=== PATIENT | female | born 1935 | race Caucasian/White ===

== ENCOUNTER 2023-10-30 13:26 | Inpatient (IN) | payer OTHER ==
--- OUTSIDE RECORDS SUMMARY | 2023-10-30 13:28 | XMS REPORT | Continuity of Care Document ---
Author Name Unknown Address [address] [place] [address] thconnect Address [address] [place] [address] Care Team Providers Care Business Technology Analyst Name Role Phone Unavailable Unavailable Unavailable Encounters Start Date/Time End Date/Time Encounter Type Admission Type Attending Clinicians Care Facility Care Department Encounter ID Source 2020-08-03 10:00:00 2020-08-03 10:00:00 Outpatient [facility] [id number] [facility]
[2023-10-30 14:07] LABS: Absolute Eosinophils 0.4 K/uL (0-0.5); Absolute Monocytes 0.6 K/uL (0.1-1.3); Absolute Neutrophil 5.4 K/uL (1.8-8.0); Basophils % 0.6 % (0-1.3); Eosinophils % 4.3 % (0-4.4); Hematocrit 36.7 % (36.0-45.0); Hemoglobin 12.3 g/dL (12.0-15.0); Lymphocytes % 23.7 % (15.3-44.8); MCH 30.9 pg (27.0-35.0); MCHC 33.5 g/dL (32.0-36.0); MCV 92.4 fL (80-100); MPV 8.3 fL (7.6-11.3); Monocytes % 7.3 % (3.3-12.3); Neutrophils % 64.1 % (41.7-73.7); Platelets 300 thou/uL (152-406); RBC Red Blood Cell Count 3.97 M/uL (3.86-4.86); Red Cell Distribution Width 13.6 % (12.1-15.2)
[2023-10-30 14:20] LABS: PT Prothrombin Time 11.8 SECONDS (9.5-12.5); Protime INR 1.07
[2023-10-30 14:27] LABS: Albumin 3.6 g/dL (3.4-5.0); Albumin/Globulin Ratio 1.1 (1.1-1.8); Anion Gap 9.5 mEq/L (5.0-15.0); Bilirubin Direct 0.3 mg/dL (0-0.2); Bilirubin Indirect, Calculated 0.3 mg/dL (0.2-0.8); Bilirubin Total 0.6 mg/dL (0.2-1.0); Globulin 3.4 g/dL (2.3-3.5); Magnesium 2.2 mg/dL (1.6-2.4); Potassium 4.5 mEq/L (3.5-5.1); Troponin High Sensitivity 5.7 pg/mL (<58.9)
--- NOTE | 2023-10-30 14:48 | RAD REPORT ---
[facility] CLINICAL HISTORY: CHEST PAIN COMPARISON: Chest Pa And Lat (2 Views) dated 06/19/2017; CHEST PA AND LAT 2 VIEW dated 03/08/2011; FORREST ST PA AND LAT 2 VIEW dated 04/22/2006 TECHNIQUE: Portable AP view of the chest. FINDINGS: Hazy left basilar opacities more pronounced than on the prior exam, could reflect atelecta sis or early airspace disease. Stable right hemidiaphragm elevation and medial apical streaky opacifi cation. No pneumothorax or effusion. The cardiomediastinal contours are unremarkable. IMPRESSION: Hazy left basilar opacities more pronounced than on the prior exam, could reflect atelec tasis or early airspace disease.
--- NOTE | 2023-10-30 15:17 | EDPHYS ---
Physician Documentation [facility] Name: Moira Alvares Age: 88 yrs Sex: Female : 1935 Arrival Date: 10/30/2023 Time: 13:26 Bed 14 Private MD: Ariel Marino V ED Physician Danya Stovall HPI: 10/29 13:33 This 88 yrs old Female presents to ER via Unassigned with complaints of Chest Pain. sp3 13:33 88-year-old female with history of hypertension, prior CVA presents to the ED with sp3 chief complaint chest pain that started approximate 1 PM and lasted 20 minutes and self subsided. Pain was described as crushing and substernal in nature. She denies any radiation to the back head and neck or abdomen. She denies shortness of breath, abdominal pain, vomiting, diarrhea, fever, URI symptoms, known sick contacts, travel history, prolonged immobilization, prior DVT or PE history, syncope, focal neurological deficit, speech changes, trauma, or any other signs or symptoms on ROS at this time. Historical: - Allergies: 13:42 Demerol; iw - PMHx: 13:42 Hypertensive disorder; Hypercholesterolemia; iw - PSHx: 13:42 hysterectomy; iw - Immunization history:: Adult Immunizations up to date, Client reports receiving the 2nd dose of the Covid vaccine. - Infectious Disease History:: Denies. - Social history:: Smoking status: Patient/guardian denies using tobacco, but has a distant history of tobacco abuse. ROS: 13:34 Constitutional: Negative for fever, chills, and weight loss, Eyes: Negative for injury, sp3 pain, redness, and discharge, ENT: Negative for injury, pain, and discharge, Neck: Negative for injury, pain, and swelling, Respiratory: Negative for shortness of breath, cough, wheezing, and pleuritic chest pain, Abdomen/GI: Negative for abdominal pain, nausea, vomiting, diarrhea, and constipation, Back: Negative for injury and pain, MS/Extremity: Negative for injury and deformity, Skin: Negative for injury, rash, and discoloration, Neuro: Negative for headache, weakness, numbness, tingling, and seizure, Psych: Negative for depression, anxiety, suicide ideation, homicidal ideation, and hallucinations, Allergy/Immunology: Negative for hives, rash, and allergies, Endocrine: Negative for neck swelling, polydipsia, polyuria, polyphagia, and marked weight changes, Hematologic/Lymphatic: Negative for swollen nodes, abnormal bleeding, and unusual bruising, 13:34 All other systems are negative, Exam: 13:34 Constitutional: This is a well developed, well nourished patient who is awake, alert, sp3 and in no acute distress. Head/Face: Normocephalic, atraumatic. Eyes: Pupils equal round and reactive to light, extra-ocular motions intact. Lids and lashes normal. Conjunctiva and sclera are non-icteric and not injected. Cornea within normal limits. Periorbital areas with no swelling, redness, or edema. ENT: Nares patent. No nasal discharge, no septal abnormalities noted. External auditory canals are clear. Oropharynx with no redness, swelling, or masses, exudates, or evidence of obstruction, uvula midline. Mucous membranes moist. Neck: Trachea midline, no thyromegaly or masses palpated, and no cervical lymphadenopathy. Supple, full range of motion without nuchal rigidity, or vertebral point tenderness. No Meningismus. Chest/axilla: Normal chest wall appearance and motion. Nontender with no deformity. No lesions are appreciated. Cardiovascular: Regular rate and rhythm with a normal S1 and S2. No gallops, murmurs, or rubs. Normal PMI, no JVD. No pulse deficits. Respiratory: Lungs have equal breath sounds bilaterally, clear to auscultation and percussion. No rales, rhonchi or wheezes noted. No increased work of breathing, no retractions or nasal flaring. Abdomen/GI: Soft, non-tender, with normal bowel sounds. No distension or tympany. No guarding or rebound. No evidence of tenderness throughout. Back: No spinal tenderness. No costovertebral tenderness. Full range of motion. Skin: Warm, dry with normal turgor. Normal color with no rashes, no lesions, and no evidence of cellulitis. MS/ Extremity: Pulses equal, no cyanosis. Neurovascular intact. Full, normal range of motion. Neuro: Awake and alert, GCS 15, oriented to person, place, time, and situation. Cranial nerves II-XII grossly intact. Motor strength 5/5 in all extremities. Sensory grossly intact. Cerebellar exam normal. Normal gait. Psych: Awake, alert, with orientation to person, place and time. Behavior, mood, and affect are within normal limits. 13:36 ECG was reviewed by the Attending Physician. EKG demonstrates normal sinus rhythm at 65 sp3 bpm with normal intervals, normal QRS, leftward axis and nonspecific diffuse ST's ST changes without evidence of acute ischemia. Vital Signs: 13:41 BP 139 / 70; Pulse 66; Resp 16; Temp 97.5; Pulse Ox 100% on R/A; Weight 51.71 kg; iw Height 4 ft. 11 in. ; 14:00 BP 155 / 62; Pulse 62; Resp 16; Pulse Ox 100% on R/A; me1 15:36 BP 135 / 68; Pulse 59; Resp 13; Pulse Ox 100% on R/A; me1 16:00 BP 150 / 69; Pulse 69; Resp 18; Pulse Ox 100% on R/A; me1 17:00 BP 164 / 89; Pulse 78; Resp 21; Pulse Ox 96% on R/A; me1 18:00 BP 129 / 62; Pulse 62; Resp 17; Pulse Ox 99% on R/A; me1 19:00 BP 146 / 74; Pulse 63; Resp 19; Pulse Ox 100% on R/A; me1 13:41 Body Mass Index 23.02 (51.71 kg, 149.86 cm) iw MDM: 13:29 Patient medically screened. sp3 13:35 Data reviewed: vital signs, nurses notes, old medical records, lab test result(s), EKG, sp3 radiologic studies. ED course: 80-year-old female with 20-minute history of self resolving chest pain and CVA and hypertension history. Differential diagnosis includes ACS spectrum, GI pathology, MSK, among others. I am not highly suspicious for pulmonary pathology, pneumonia or other concerning process including vascular/aortic aneurysm or dissection. Workup will include EKG, chest x-ray and laboratory values including troponin with probable 24-hour observation given high heart score.. 15:16 ED course: Discussed with Dr. Marino who agrees patient needs to be observed for 23 sp3 hours with cardiology consultation.. 10/29 13:29 Order name: Basic Metabolic Panel; Complete Time: 14:45 sp3 10/29 13:29 Order name: CBC with Diff; Complete Time: 14:45 sp3 10/29 13:29 Order name: LFT's; Complete Time: 14:45 sp3 10/29 13:29 Order name: Magnesium; Complete Time: 14:45 sp3 10/29 13:29 Order name: NT PRO-BNP; Complete Time: 14:45 sp3 10/29 13:29 Order name: PT-INR; Complete Time: 14:45 sp3 10/29 13:29 Order name: Troponin HS; Complete Time: 14:45 sp3 10/29 15:41 Order name: Basic Metabolic Panel EDMS 10/29 15:41 Order name: Basic Metabolic Panel EDMS 10/29 15:41 Order name: Basic Metabolic Panel EDMS 10/29 15:41 Order name: Basic Metabolic Panel EDMS 10/29 15:41 Order name: CBC with Automated Diff EDMS 10/29 15:41 Order name: CBC with Automated Diff EDMS 10/29 15:41 Order name: CBC with Automated Diff EDMS 10/29 15:41 Order name: CBC with Automated Diff EDMS 10/29 15:41 Order name: Troponin High Sensitivity EDMS 10/29 15:41 Order name: Troponin High Sensitivity EDMS 10/29 15:41 Order name: Troponin High Sensitivity EDMS 10/29 13:29 Order name: XRAY Chest (1 view); Complete Time: 14:54 sp3 10/29 18:53 Order name: CT EDMS 10/29 15:41 Order name: CONS Physician Consult EDMS 10/29 15:41 Order name: EKG Electrocardiogram EDMS 10/29 15:41 Order name: EKG Electrocardiogram EDMS 10/29 15:41 Order name: EKG Electrocardiogram EDMS 10/29 15:41 Order name: EKG Electrocardiogram EDMS 10/29 13:29 Order name: Cardiac monitoring; Complete Time: 14:30 sp3 10/29 13:29 Order name: EKG - Nurse/Tech; Complete Time: 13:48 sp3 10/29 13:29 Order name: IV Saline Lock; Complete Time: 13:55 sp3 10/29 13:29 Order name: Labs collected and sent; Complete Time: 13:55 sp3 10/29 13:29 Order name: O2 Per Protocol; Complete Time: 13:48 sp3 10/29 13:29 Order name: O2 Sat Monitoring; Complete Time: 13:48 sp3 Administered Medications: No medications were administered Disposition Summary: 10/30/23 15:16 Hospitalization Ordered Notes: Hospitalization Status: Observation sp3 Provider: Ariel Marino sp3 Condition: Stable sp3 Problem: new sp3 Symptoms: have worsened sp3 Bed/Room Type: Standard sp3 Location: Telemetry/MedSurg (observation)(10/30/23 18:41) em1 Room Assignment: 232(10/30/23 18:41) em1 Diagnosis - Chest pain sp3 Forms: - Medication Reconciliation Form sp3 - SBAR form sp3 - Leadership Thank You Letter sp3 Signatures: Dispatcher [employer] EDMS Rachna Medrano RN RN iw Martinez, Eric em1 Danya Stovall MD MD sp3 Corrections: (The following items were deleted from the chart) 13:29 13:29 BASIC METABOLIC PANEL+C.LAB.BRZ ordered. EDMS EDMS 13:29 13:29 CBC+H.LAB.BRZ ordered. EDMS EDMS 13:29 13:29 HEPATIC FUNCTION+C.LAB.BRZ ordered. EDMS EDMS 13:29 13:29 MAGNESIUM+C.LAB.BRZ ordered. EDMS EDMS 13:29 13:29 PROBNP+C.LAB.BRZ ordered. EDMS EDMS 13:29 13:29 PROTIME (+INR)+COAG.LAB.BRZ ordered. EDMS EDMS 13:29 13:29 Troponin High Sensitivity+C.LAB.BRZ ordered. EDMS EDMS 13:34 13:34 Constitutional: This is a well developed, well nourished patient who is awake, sp3 alert, and in no acute distress. Head/Face: Normocephalic, atraumatic. Eyes: Pupils equal round and reactive to light, extra-ocular motions intact. Lids and lashes normal. Conjunctiva and sclera are non-icteric and not injected. Cornea within normal limits. Periorbital areas with no swelling, redness, or edema. ENT: Nares patent. No nasal discharge, no septal abnormalities noted. External auditory canals are clear. Oropharynx with no redness, swelling, or masses, exudates, or evidence of obstruction, uvula midline. Mucous membranes moist. Neck: Trachea midline, no thyromegaly or masses palpated, and no cervical lymphadenopathy. Supple, full range of motion without nuchal rigidity, or vertebral point tenderness. No Meningismus. Chest/axilla: Normal chest wall appearance and motion. Nontender with no deformity. No lesions are appreciated. Respiratory: Lungs have equal breath sounds bilaterally, clear to auscultation and percussion. No rales, rhonchi or wheezes noted. No increased work of breathing, no retractions or nasal flaring. Abdomen/GI: Soft, non-tender, with normal bowel sounds. No distension or tympany. No guarding or rebound. No evidence of tenderness throughout. Back: No spinal tenderness. No costovertebral tenderness. Full range of motion. Skin: Warm, dry with normal turgor. Normal color with no rashes, no lesions, and no evidence of cellulitis. MS/ Extremity: Pulses equal, no cyanosis. Neurovascular intact. Full, normal range of motion. Neuro: Awake and alert, GCS 15, oriented to person, place, time, and situation. Cranial nerves II-XII grossly intact. Motor strength 5/5 in all extremities. Sensory grossly intact. Cerebellar exam normal. Normal gait. Psych: Awake, alert, with orientation to person, place and time. Behavior, mood, and affect are within normal limits. sp3 16:34 15:16 Telemetry/MedSurg (observation) sp3 em1 16:34 15:16 sp3 em1 18:41 16:34 [facility] ER HOLD em1 em1 18:41 16:34 ERHOLD- em1 em1
--- NOTE | 2023-10-30 15:17 | ER ---
Nurse's Notes [facility] Name: Moira Alvares Age: 88 yrs Sex: Female : 1935 Arrival Date: 10/30/2023 Time: 13:26 Bed 14 Private MD: Ariel Marino V Diagnosis: Chest pain Presentation: 10/29 13:41 Chief complaint: Patient states: chest pain started at 1300 , lasted about 15-20 iw minutes. Coronavirus screen: At this time, the client does not indicate any symptoms associated with coronavirus-19. Ebola Screen: Patient negative for fever greater than or equal to 101.5 degrees Fahrenheit, and additional compatible Ebola Virus Disease symptoms Patient denies exposure to infectious person. Patient denies travel to an Ebola-affected area in the 21 days before illness onset. No symptoms or risks identified at this time. Initial Sepsis Screen: Does the patient meet any 2 criteria? No. Patient's initial sepsis screen is negative. Does the patient have a suspected source of infection? No. Patient's initial sepsis screen is negative. Risk Assessment: Do you want to hurt yourself or someone else? Patient reports no desire to harm self or others. Onset of symptoms was October 30, 2023. 13:41 Method Of Arrival: Wheelchair iw 13:41 Acuity: VALERIA 3 iw Historical: - Allergies: 13:42 Demerol; iw - PMHx: 13:42 Hypertensive disorder; Hypercholesterolemia; iw - PSHx: 13:42 hysterectomy; iw - Immunization history:: Adult Immunizations up to date, Client reports receiving the 2nd dose of the Covid vaccine. - Infectious Disease History:: Denies. - Social history:: Smoking status: Patient/guardian denies using tobacco, but has a distant history of tobacco abuse. Screenin:30 [facility] ED Fall Risk Assessment (Adult) History of falling in the last 3 months, me1 including since admission No falls in past 3 months (0 pts) Confusion or Disorientation No (0 pts) Intoxicated or Sedated No (0 pts) Impaired Gait No (0 pts) Mobility Assist Device Used No (0 pt) Altered Elimination No (0 pt) Score/Fall Risk Level 0 - 2 = Low Risk Maintained a safe environment, Provided non-skid footwear, Hourly rounding (assess needs \T\ fall precautionary measures) done. Abuse screen: Denies threats or abuse. Nutritional screening: No deficits noted. Tuberculosis screening: No symptoms or risk factors identified. Assessment: 13:30 General: Appears comfortable, well groomed, well developed, well nourished, Behavior is me1 calm, cooperative, appropriate for age, Reports chest pain that started about 1 pm and lasted 15-20 minutes. Pain: Complains of pain in chest Pain radiates to right jaw and left jaw Pain at worst was 8 out of 10 on a pain scale. Quality of pain is described as heavy, Pain began suddenly, Is lasting 30 minutes. Neuro: Level of Consciousness is awake, alert, obeys commands, Oriented to person, place, time, situation, Appropriate for age. Cardiovascular: Reports chest pain, nausea, shortness of breath, started at 1 pm and lasted 15-20 minutes. Denies chest pain since. Capillary refill < 3 seconds Patient's skin is warm and dry. Respiratory: Airway is patent Respiratory effort is even, unlabored, Respiratory pattern is regular, symmetrical. GI: Reports nausea, associated with her one episode of chest pain. : No signs and/or symptoms were reported regarding the genitourinary system. EENT: No signs and/or symptoms were reported regarding the EENT system. Derm: Skin is intact, is healthy with good turgor, Skin is pink, warm \T\ dry. Musculoskeletal: No signs and/or symptoms reported regarding the musculoskeletal system. 14:03 Reassessment: Patient and/or family updated on plan of care and expected duration. Pain ll1 level reassessed. Vital Signs: 13:41 BP 139 / 70; Pulse 66; Resp 16; Temp 97.5; Pulse Ox 100% on R/A; Weight 51.71 kg; iw Height 4 ft. 11 in. ; 14:00 BP 155 / 62; Pulse 62; Resp 16; Pulse Ox 100% on R/A; me1 15:36 BP 135 / 68; Pulse 59; Resp 13; Pulse Ox 100% on R/A; me1 16:00 BP 150 / 69; Pulse 69; Resp 18; Pulse Ox 100% on R/A; me1 17:00 BP 164 / 89; Pulse 78; Resp 21; Pulse Ox 96% on R/A; me1 18:00 BP 129 / 62; Pulse 62; Resp 17; Pulse Ox 99% on R/A; me1 19:00 BP 146 / 74; Pulse 63; Resp 19; Pulse Ox 100% on R/A; me1 13:41 Body Mass Index 23.02 (51.71 kg, 149.86 cm) ED Course: 13:27 Patient arrived in ED. rg4 13:27 Ariel Marino MD is Private Physician. rg4 13:28 Danya Stovall MD is Attending Physician. sp3 13:30 Patient has correct armband on for positive identification. Bed in low position. Call me1 light in reach. Side rails up X2. Provided Education on: POC. Verbalized understanding. . 13:30 No provider procedures requiring assistance completed. O2 via room air. me1 13:42 Triage completed. iw 13:43 Arm band placed on. iw 13:43 Client placed on continuous cardiac and pulse oximetry monitoring. NIBP monitoring me1 applied. automatic oven operator on. Pulse ox on. NIBP on. 13:47 Delfina Gates, RN is Primary Nurse. me1 13:49 EKG done, by ED staff, reviewed by Danya Stovall MD. me1 13:58 Inserted saline lock: 22 gauge in right antecubital area, using aseptic technique. ll1 Blood collected. 14:22 XRAY Chest (1 view) In Process Unspecified. EDMS 15:16 Ariel Marino MD is Hospitalizing Provider. sp3 18:50 Patient admitted, IV remains in place. me1 Administered Medications: No medications were administered Medication: 13:30 VIS not applicable for this client. me1 Outcome: 15:16 Decision to Hospitalize by Provider. sp3 18:50 Admitted to Med/surg accompanied by tech, room 232, with chart, Report called to me1 report faxed at 18:47. Called 2nd floor to confirm receipt of fax- no answer. 18:51 Condition: stable me1 18:51 Instructed on the need for admit, 19:58 Patient left the ED. me1 Signatures: Dispatcher [employer] EDMS Rachna Medrano, RN RN iw Marifer Mendoza rg4 Bronson Goins RN RN 1 Danya Stovall MD MD sp3 Delfina Gates, YOSELYN RN me1
--- NOTE | 2023-10-30 18:52 | RAD REPORT ---
EXAM DESCRIPTION: CT - Abdomen Pelvis W Contrast - 10/30/2023 5:47 pm CLINICAL HISTORY: pain COMPARISON: No comparisons TECHNIQUE: Thin cut axial CT imaging of the abdomen and pelvis was performed following intravenous a dministration of iodinated contrast. Multiplanar reformats were generated and reviewed. All CT scans are performed using dose optimization technique as appropriate and may include automated exposure control or mA/KV adjustment according to patient size. FINDINGS: No suspicious findings in the lung bases. Mild left more than right basilar reticular opac ities suggestive of fibrosis/scarring. The liver demonstrates multiple fluid density lesions, the largest replaces most of the right lobe pa renchyma, measuring 15 x 12 cm. Adrenal glands, spleen, and pancreas show no suspicious findings. Gal lbladder and biliary tree are also without suspicious finding. Symmetric renal function is seen with no hydronephrosis or suspicious renal mass. Exophytic right upp er pole 3.0 cm fluid density cyst. No dilated bowel loops. No free air or fluid collections. Colonic diverticulosis, with focal inflamma tory changes with adjacent fat stranding and minimal adjacent non loculated fluid at the distal desce nding colon, along its anterior wall. No hernia, mass or bulky lymphadenopathy. The urinary bladder i s decompressed limiting evaluation. No suspicious bony findings. IMPRESSION: Findings suggestive of uncomplicated acute diverticulitis of the distal descending colon . Multi hepatic cystic lesions, including a dominant 15 cm lesion replacing most of the right lobe. Other incidental findings as above.
--- NOTE | 2023-10-30 20:46 | CON ---
Reason For Consultation: Chest pain. History Of Present Illness: This is an 88-year-old female, past medical history of hypertension, pre sented to the emergency room with chest pain, pressure like, retrosternal, radiates to the neck and j aw and lasts for about 45 minutes to an hour, resolved and has been happening over the past few month s and becoming more frequent lately. Denies having any history of cardiac disease. No active smokin g history. The only past medical history that she takes medications for is hypertension. Past Medical History: Hypertension. Medications: Refer to reconciliation sheet for detailed list. Allergies: NO KNOWN DRUG ALLERGIES. Family History: No premature coronary artery disease or cancer. Social History: She does not smoke or drink. Does not use any drugs. Review of Systems: All systems reviewed and they were negative except as mentioned in the HPI. Physical Examination: Vital Signs: Reviewed. Head and Neck: Pupils are equal, reactive to light. Intact eye movements. No JVD. No cervical lym phadenopathy. Neck is supple. Thyroid is not enlarged. Lungs: Clear to auscultation bilaterally. No rhonchi, wheezing, or crackles. No accessory muscle u se. Heart: Regular rate and rhythm. No extra sounds. Abdomen: Soft, nontender. Bowel sounds positive. No organomegaly. No masses or hernia. No rigidi ty or rebound. Extremities: No edema, clubbing, cyanosis. Intact pulses. Skin: No rash or nodule. Neurologic: Alert, awake, oriented x3. No acute focal deficits appreciated. Investigations: BUN 34, creatinine 1.3. Troponin is 5.7. NT-proBNP 564. Hemoglobin 12.3. Assessment/recommendation: 1.Chest pain, very typical features. Troponin is negative. However, this is suggestive of unstable angina. Recommend baby aspirin and trend troponin x2 and obtain echocardiogram and keep n.p.o. past midnight for coronary angiogram. Symptoms are extremely typical. I would bypass with stress test a nd go directly with coronary angiogram. 2.Elevated NT-proBNP, low-grade diastolic versus systolic heart failure. Obtain echo to further monet luate. 3.Hypertension. Resume home medications. Adjust blood pressure medications as needed. 4.Elevated BUN, creatinine, could be due to hypertension. Monitor while in the hospital. SR/MODL Voice ID: [id number] Report ID: [id number]
[2023-10-30 20:50] VITALS: BMI 23.5
--- NOTE | 2023-10-30 21:31 | P.HP ---
Certification for Inpatient Patient admitted to: Inpatient With expected LOS: >2 Midnights Practitioner: I am a practitioner with admitting privileges, knowledge of patient current condition, hospital course, and medical plan of care. Services: Services provided to patient in accordance with Admission requirements found in Title 42 Section 412.3 of the Code of Federal Regulations Patient History Date of Service: 10/30/23 Reason for admission: abdomen and chest pain History of Present Illness: Shawna is 88 years old relatively healthy woman with no cardiac history, comes with abdomen pain for two days,got gradually better but woke up with chest pain and radiation to neck. She is painfree now in the chest but abdomen pain continues. Allergies meperidine Allergy (Verified 10/30/23 16:29) Itching Home medications list reviewed: Yes - Past Medical/Surgical History Has patient received pneumonia vaccine in the past: Yes Diabetic: No -: hysterectomy - Social History Smoking Status: Never smoker Alcohol use: No CD- Drugs: No Caffeine use: No Place of Residence: Home Review of Systems 10-point ROS is otherwise unremarkable General: Weakness Gastrointestinal: Abdominal Pain Physical Examination - Vital Signs Temperature: 97.3 F Blood Pressure: 148/79 Pulse: 70 Respirations: 16 Pulse Ox (%): 97 - Physical Exam General: Alert, In no apparent distress HEENT: Atraumatic, PERRLA, Mucous membr. moist/pink, EOMI, Sclerae nonicteric Neck: Supple, 2+ carotid pulse no bruit, No LAD, Without JVD or thyroid abnormality Respiratory: Clear to auscultation bilaterally, Normal air movement Cardiovascular: Regular rate/rhythm, Normal S1 S2 Gastrointestinal: No rebound Musculoskeletal: No tenderness Integumentary: No rashes Neurological: Normal gait, Normal speech, Normal strength at 5/5 x4 extr, Normal tone, Normal affect Lymphatics: No axilla or inguinal lymphadenopathy - Studies Laboratory Data (last 24 hrs) 10/30/23 10/30/23 10/30/23 13:58 13:58 13:58 WBC 8.40 Hgb 12.3 Hct 36.7 Plt Count 300 PT 11.8 INR 1.07 Sodium 139 Potassium 4.5 BUN 34 H Creatinine 1.31 H Glucose 97 Magnesium 2.2 Total Bilirubin 0.6 AST 19 ALT 22 Alkaline Phosphatase 97 Assessment and Plan - Problems (Diagnosis) (1) Chest pain Current Visit: Yes Status: Acute Plan: lovenox aspirin cath in am. EKG is normal ce neg but chest pain is classic for cad. (2) Acute diverticulitis Current Visit: Yes Status: Acute Plan: IV cipro and flagyl gentle hydration. - Advance Directives Does patient have a Living Will: Yes Does patient have a Durable POA for Healthcare: Yes
[2023-10-30] MEDS: NACHLORIDE 0.45% 1,000 ML IV SCH (22:47)
[2023-10-30] MEDS: CIPROFLOXACIN 400mg IV 400 MG/200 ML BAG IV SCH (22:51)
[2023-10-31] MEDS ORDERED: metroNIDAZOLE 500 MG TABLET PO SCH
[2023-10-31] MEDS: METRONIDAZOLE 500mg IVPB 500 MG/100 ML BAG IV SCH (01:15)
[2023-10-31 03:41] LABS: Absolute Eosinophils 0.3 K/uL (0-0.5); Absolute Monocytes 0.4 K/uL (0.1-1.3); Absolute Neutrophil 4.8 K/uL (1.8-8.0); Basophils % 0.5 % (0-1.3); Eosinophils % 4.4 % (0-4.4); Hematocrit 32.6 % (36.0-45.0); Hemoglobin 11.2 g/dL (12.0-15.0); Lymphocytes % 15.3 % (15.3-44.8); MCH 31.6 pg (27.0-35.0); MCHC 34.3 g/dL (32.0-36.0); MPV 8.5 fL (7.6-11.3); Monocytes % 6.1 % (3.3-12.3); Neutrophils % 73.7 % (41.7-73.7); Platelets 270 thou/uL (152-406); RBC Red Blood Cell Count 3.54 M/uL (3.86-4.86); Red Cell Distribution Width 13.6 % (12.1-15.2)
[2023-10-31 04:03] LABS: Anion Gap 11.3 mEq/L (5.0-15.0); Potassium 3.3 mEq/L (3.5-5.1); Troponin High Sensitivity 11.1 pg/mL (<58.9)
[2023-10-31] MEDS: ENOXAPARIN 30 MG/0.3 ML SQ SCH (07:00)
[2023-10-31] MEDS: POTASSIUM 25 MEQ EFFERV TAB PO ONE (08:58)
[2023-10-31] MEDS: ASPIRIN EC 81 MG TAB PO SCH (09:00)
[2023-10-31] MEDS: NA CHLORIDE 0.9% 500 ML ONE (12:24)
[2023-10-31] MEDS ORDERED: LIDOCAINE 1% 20 ML MDV ONE (13:07)
[2023-10-31] MEDS ORDERED: HEPA 1000U/500MLS 2,000 UNIT/1,000 ML BAG IV ONE (13:07)
[2023-10-31] MEDS ORDERED: HEPARIN 10,000 UNIT/10 ML VIAL IV ONE (13:08)
[2023-10-31] MEDS ORDERED: HEPARIN 5000 UNIT/ML 1 ML VIAL ONE (13:08)
[2023-10-31] MEDS ORDERED: FENTANYL CITR 100 MCG/2 ML ONE (14:16)
[2023-10-31] MEDS ORDERED: MIDAZOLAM HCL 2 MG/2 ML INJ ONE (14:16)
--- NOTE | 2023-10-31 16:09 | OP ---
Date of Procedure: 10/31/2023 Surgeon: Dangelo Barajas Procedure Performed: Selective coronary angiogram. Indication: Unstable angina. Complication: None. Bleeding: Less than 50 cc. Sedation Time: 20 minutes. Description Of Procedure: After risks, and benefits, and alternatives were explained to patient, pat ient agreed to proceed with procedure and signed an informed consent. The patient was brought back t o the dental laboratory supervisor, prepped and draped in a sterile fashion. Time-out was performed. Sedation was admin istered. The right radial access was obtained using ultrasound-guided micropuncture technique. A 6- Yi sheath was introduced. [place] 4.0 catheter was advanced over a J-wire to the aortic root. Alicia ective coronary angiogram was performed. Catheter was removed and TR band was applied after sheath r emoval. The patient was moved back to recovery in stable condition. Findings: 1.Left main is normal. 2.LAD; mild luminal irregularities. 3.Left circ; mild luminal irregularities. 4.RCA; tortuous, mid 30% disease, then mild LI. Assessment And Plan: Mild nonobstructive coronary artery disease. Plan will be to continue medical management. CAMILO/ROSAS Voice ID: [id number] Report ID: [id number]
--- NOTE | 2023-10-31 18:17 | P.PN ---
Subjective Date of Service: 10/31/23 Chief Complaint: abdomen and chest pain Subjective: No new changes Review of Systems 10-point ROS is otherwise unremarkable Physical Examination - Vital Signs Temperature: 97.1 F Blood Pressure: 147/65 Pulse: 78 Respirations: 16 Pulse Ox (%): 98 - Physical Exam General: Alert, Oriented x3 HEENT: Atraumatic Neck: Supple Respiratory: Clear to auscultation bilaterally Cardiovascular: No edema, Normal S1 S2 Gastrointestinal: Normal bowel sounds Assessment And Plan - Current Problems (Diagnosis) (1) Chronic diastolic heart failure Current Visit: Yes Status: Acute Plan: Patient LVEDP is normal and euvolemic on exam, continue to monitor. (2) HTN (hypertension) Current Visit: Yes Status: Acute Plan: Continue home medications. (3) Chest pain Current Visit: Yes Status: Acute Plan: Patient had a coronary angiogram that shows mild non obstructive CAD. Continue medical management.
[2023-10-31] MEDS: ENSURE HIGH PROTEIN 237 ML CAN PO SCH (21:30)
[2023-11-01 03:10] LABS: Absolute Eosinophils 0.5 K/uL (0-0.5); Absolute Lymphocytes (CBC) 1.2 K/uL (0.7-4.9); Absolute Monocytes 0.7 K/uL (0.1-1.3); Absolute Neutrophil 5.6 K/uL (1.8-8.0); Basophils % 0.5 % (0-1.3); Eosinophils % 5.8 % (0-4.4); Hematocrit 33.2 % (36.0-45.0); Hemoglobin 11.4 g/dL (12.0-15.0); MCH 31.7 pg (27.0-35.0); MCHC 34.5 g/dL (32.0-36.0); MPV 8.4 fL (7.6-11.3); Monocytes % 8.9 % (3.3-12.3); Neutrophils % 69.8 % (41.7-73.7); Platelets 261 thou/uL (152-406); RBC Red Blood Cell Count 3.61 M/uL (3.86-4.86); Red Cell Distribution Width 13.5 % (12.1-15.2)
[2023-11-01 03:11] LABS: Anion Gap 8.5 mEq/L (5.0-15.0); Potassium 3.5 mEq/L (3.5-5.1)
[2023-11-01] MEDS: METOPROLOL TAR 25 MG TAB PO SCH (05:33)
[2023-11-01] MEDS: METOPROLOL TARTRATE 5 MG/5 ML INJ IV STA (05:33)
[2023-11-01] MEDS ORDERED: CEFOXITIN 2 GM in NA CHLORIDE 0.9% 100 ML IVPB SCH (09:00)
[2023-11-01] MEDS ORDERED: ENOXAPARIN 40 MG/0.4 ML SQ SCH (09:00)
[2023-11-01] MEDS: CEFOXITIN 2 GM in NA CHLORIDE 0.9% 100 ML IVPB SCH (09:04)
[2023-11-01] MEDS: APIXABAN 5 MG TABLET PO SCH (09:04)
--- NOTE | 2023-11-01 13:08 | P.PN ---
Subjective Date of Service: 11/01/23 Chief Complaint: abdomen and chest pain Subjective: New changes (Patient went into AF w RVR overnight. now in sinus rhythm.) Review of Systems 10-point ROS is otherwise unremarkable Physical Examination - Vital Signs Temperature: 97.9 F Blood Pressure: 114/80 Pulse: 116 Respirations: 24 Pulse Ox (%): 96 - Physical Exam General: Alert, Oriented x3 HEENT: Atraumatic Neck: Supple Respiratory: Clear to auscultation bilaterally Cardiovascular: No edema, Normal S1 S2 Gastrointestinal: Normal bowel sounds Assessment And Plan - Current Problems (Diagnosis) (1) Chronic diastolic heart failure Current Visit: Yes Status: Acute Plan: Patient LVEDP is normal and euvolemic on exam, continue to monitor. (2) HTN (hypertension) Current Visit: Yes Status: Acute Plan: Continue home medications. (3) Chest pain Current Visit: Yes Status: Acute Plan: Patient had a coronary angiogram that shows mild non obstructive CAD. Continue medical management. (4) Atrial fibrillation Current Visit: Yes Status: Acute Plan: overnight was in RVR, S/P lopressor 5 mg IV X1 Continue Sotalol 80 mg po BID, get repeated EKG after each dose. Continue Lopressor 25 mg po BID Continue Eliquis.
--- NOTE | 2023-11-01 14:47 | P.PN ---
Subjective Date of Service: 11/01/23 Chief Complaint: abdomen and chest pain Subjective: Improving SHE HAD RAPID A FIB LAST NIGHT. THAT IS FIRST TIME FOR HERE HERE. HER ABDOMEN PAIN IS IMPROVING. Review of Systems 10-point ROS is otherwise unremarkable General: Weakness Physical Examination - Vital Signs Temperature: 97.9 F Blood Pressure: 114/80 Pulse: 116 Respirations: 24 Pulse Ox (%): 96 - Physical Exam General: Mild distress HEENT: Atraumatic, PERRLA, EOMI Neck: Supple, JVD not distended Respiratory: Clear to auscultation bilaterally, Normal air movement Cardiovascular: Irregular heart rate/rhythm (NEW A FIB) Gastrointestinal: Normal bowel sounds, No tenderness Musculoskeletal: No tenderness Integumentary: No rashes Neurological: Normal speech, Normal tone, Normal affect Lymphatics: No axilla or inguinal lymphadenopathy - Studies Medications List Reviewed: Yes Assessment And Plan - Current Problems (Diagnosis) (1) Chest pain Current Visit: Yes Status: Acute Plan: lovenox aspirin cath in am. EKG is normal ce neg but chest pain is classic for cad. (2) Acute diverticulitis Current Visit: Yes Status: Acute Plan: IV cipro and flagyl gentle hydration. (3) Rapid atrial fibrillation Current Visit: Yes Status: Acute Plan: THIS IS NEW SOTALOL AND ELIQUIS SHOULD HELP D DIMER WAS HIGH BUT AGAIN SHE IS NOW ON ELIQUIS. SHE IS NOT IN ANY ACUTE DISTRESS WILL AVOID ANY MORE IODINE TO DO CT CHEST ANGIOGRAM SHE IS HEMODYNAICALLY ST ABLE THIS WILL COVER THE THERAPY IF SHE HAS PE.
[2023-11-01] MEDS: SOTALOL HCL 80 MG TAB PO SCH (17:03)
[2023-11-01] MEDS: CEFEPIME 1 GM in NA CHLORIDE 0.9% 100 ML IV SCH (17:04)
[2023-11-02 03:14] LABS: Absolute Basophils 0.1 K/uL (0-0.5); Absolute Eosinophils 0.5 K/uL (0-0.5); Absolute Lymphocytes (CBC) 2.2 K/uL (0.7-4.9); Absolute Monocytes 0.7 K/uL (0.1-1.3); Absolute Neutrophil 4.2 K/uL (1.8-8.0); Basophils % 0.9 % (0-1.3); Eosinophils % 7.1 % (0-4.4); Hematocrit 34.5 % (36.0-45.0); Hemoglobin 11.4 g/dL (12.0-15.0); Lymphocytes % 28.2 % (15.3-44.8); MCH 30.4 pg (27.0-35.0); MPV 8.1 fL (7.6-11.3); Monocytes % 8.6 % (3.3-12.3); Neutrophils % 55.2 % (41.7-73.7); Platelets 283 thou/uL (152-406); RBC Red Blood Cell Count 3.74 M/uL (3.86-4.86); Red Cell Distribution Width 13.5 % (12.1-15.2)
[2023-11-02 03:33] LABS: Anion Gap 7.5 mEq/L (5.0-15.0); Potassium 3.5 mEq/L (3.5-5.1)
[2023-11-02] MEDS: SOTALOL HCL 80 MG TAB PO SCH (06:00)
[2023-11-02 06:16] VITALS: O2SAT 97
[2023-11-02] MEDS: POTASSIUM CL SA 10 MEQ TAB PO ONE (09:44)
--- NOTE | 2023-11-02 10:23 | P.DS ---
Admission Date: 10/30/23 Discharge Date: 11/02/23 Disposition: ROUTINE DISCHARGE Discharge Condition: FAIR Reason for Admission: abdomen and chest pain - Problems (1) Chest pain Current Visit: Yes Status: Acute (2) Acute diverticulitis Current Visit: Yes Status: Acute (3) Rapid atrial fibrillation Current Visit: Yes Status: Acute Brief History of Present Illness: Shawna is 88 years old relatively healthy woman with no cardiac history, comes with abdomen pain for two days,got gradually better but woke up with chest pain and radiation to neck. She is painfree now in the chest but abdomen pain continues. Hospital Course: SHAWNA IS 80 YEARS OLD AND WAS ADMITTED FOR CHEST PAIN RADIATING TO NECK. IN FACT BEFORE 3 DAYS SHE HAD SEVERE ADBOMEN PAIN IN LLQ ALSO. I FELT SHE WAS SEVERELY TENDER THERE. HER CE ARE NEG, EKG NEGATIVE AND CATH IS NEGATIVE. SHE HAS DIVERTICULITIS IN LLQ AND RESPONDED WELL TO ANTIBIOTICS. SHE LATER HAD RAPID A FIB. WE NEEDED SOTALOL, I HAD TO STOP CIPRO AND CHANGE TO MEFOXIN. ON MEFOXIN SHE HAD FOCAL ALLERGY SO I HAD TO CHANGE TO CEFEPIME. SHE AT [place] IS ON SOTALOL SMALL DOSE SHE HAD BRADYCARDIA WITH 80 MG BID. SHE CONVERTED FROM A FIB TO NSR AND THEN BRADYCARDIA. IN MY OFFICE RECORDS- SHE IS LISTED ALLERGIC TO PCN. I CALLED CHARGE NURSE TRISTA TO CALL HER NOT TO FILL AMOX CLAV. STOP AMLODIPINE AND METOPROLOL SHE HAS AT HOME. RESEUME SOTALOL AND ELIQUIS. Vital Signs/Physical Exam: Temp Pulse Resp BP Pulse Ox 97.4 F 59 15 151/73 H 97 11/02/23 04:00 11/02/23 04:00 11/02/23 04:00 11/02/23 04:00 11/02/23 04:00 Laboratory Data at Discharge: WBC 7.60 thou/uL (4.3-10.9) 11/02/23 02:49 Hgb 11.4 g/dL (12.0-15.0) L 11/02/23 02:49 Hct 34.5 % (36.0-45.0) L 11/02/23 02:49 Plt Count 283 thou/uL (152-406) 11/02/23 02:49 PT 11.8 SECONDS (9.5-12.5) 10/30/23 13:58 INR 1.07 10/30/23 13:58 Sodium 136 mEq/L (136-145) 11/02/23 02:49 Potassium 3.5 mEq/L (3.5-5.1) 11/02/23 02:49 BUN 13 mg/dL (7-18) 11/02/23 02:49 Creatinine 0.82 mg/dL (0.55-1.02) 11/02/23 02:49 Glucose 102 mg/dL (74-106) 11/02/23 02:49 Magnesium 2.2 mg/dL (1.6-2.4) 10/30/23 13:58 Total Bilirubin 0.6 mg/dL (0.2-1.0) 10/30/23 13:58 AST 19 U/L (15-37) 10/30/23 13:58 ALT 22 U/L (13-56) 10/30/23 13:58 Alkaline Phosphatase 97 U/L (45-117) 10/30/23 13:58 Home Medications: Amoxicillin/Potassium Clav [Amox-Clav 500-125 mg Tablet] 1 each PO BID #14 11/02/23 Apixaban [Eliquis] 5 mg PO BID #60 11/02/23 Sotalol HCl [Betapace AF] 40 mg PO DAILY #30 11/02/23 New Medications: Amoxicillin/Potassium Clav [Amox-Clav 500-125 mg Tablet] 1 each PO BID #14 Sotalol HCl [Betapace AF] 40 mg PO DAILY #30 Apixaban [Eliquis] 5 mg PO BID #60 Followup: Ariel Marino MD [Primary Care Provider] -
[2023-11-02 10:58] VITALS: BP 178/71; TEMP 97.2
--- NOTE | 2023-11-03 13:05 | EKG ---
Test Date: 2023-10-31 Test Time: 11:43:25 Canteen Manager: RAMY MEASUREMENT RESULTS: Intervals: Rate: 73 [place]: 138 QRSD: 80 QT: 410 QTc: 451 [place]: P: -5 [place]: 138 QRS: -27 T: 12 INTERPRETIVE STATEMENTS: Normal sinus rhythm Nonspecific T wave abnormality Abnormal ECG Compared to ECG 10/30/2023 13:33:14 T-wave abnormality now present Left-axis deviation no longer present Electronically Signed On 11-03-23 12:57:42 CDT by Guilherme Chacon
--- NOTE | 2023-11-03 13:10 | EKG ---
Test Date: 2023-10-30 Test Time: 13:33:14 Cement Mason Maintenance: FORTUNATO MEASUREMENT RESULTS: Intervals: Rate: 65 [place]: 138 QRSD: 80 QT: 418 QTc: 434 [place]: P: -3 [place]: 138 QRS: -30 T: 21 INTERPRETIVE STATEMENTS: Normal sinus rhythm Left axis deviation Abnormal ECG Compared to ECG 05/20/2005 14:05:00 Left-axis deviation now present Electronically Signed On 11-03-23 12:59:28 CDT by Guilherme Chacon
--- NOTE | 2023-11-05 13:14 | EKG ---
Test Date: 2023-11-01 Test Time: 04:36:45 Drier Helper: KATTY MEASUREMENT RESULTS: Intervals: Rate: 139 PA: 172 QRSD: 74 QT: 282 QTc: 429 [place]: P: 27 PA: 172 QRS: -35 T: 148 INTERPRETIVE STATEMENTS: Sinus tachycardia Left axis deviation ST & T wave abnormality, consider lateral ischemia Abnormal ECG Compared to ECG 10/31/2023 11:43:25 Left-axis deviation now present ST (T wave) deviation now present Possible ischemia now present Sinus rhythm no longer present T-wave abnormality no longer present Electronically Signed On 11-05-23 13:07:59 CDT by Guilherme Chacon
== END 2023-11-02 10:15 | disposition home or self-care (01) | DRG 286 ==
LOC: ER 13:26 → ERHOLD 17:00 → 2ND 18:49
PROVIDERS: ADMIT Internal Medicine; ATTEND Internal Medicine
PROC: B2111ZZ Fluoroscopy of Multiple Coronary Arteries using Low Osmolar Contrast (ICD-10-PCS; principal; 2023-10-31)
DX: I11.0 Hypertensive heart disease with heart failure (principal); I50.31 Acute diastolic (congestive) heart failure; K57.92 Diverticulitis of intestine, part unspecified, without perforation or abscess without bleeding; I48.91 Unspecified atrial fibrillation; E78.00 Pure hypercholesterolemia, unspecified; I25.110 Atherosclerotic heart disease of native coronary artery with unstable angina pectoris; Z88.0 Allergy status to penicillin; Z88.5 Allergy status to narcotic agent; Z86.73 Personal history of transient ischemic attack (TIA), and cerebral infarction without residual deficits; Z90.710 Acquired absence of both cervix and uterus; Z87.891 Personal history of nicotine dependence
CPT/HCPCS: 36415; 71045; 74177; 76937; 80048; 80076; 83735; 83880; 84484; 85025; 85379; 85610; 93005; 93454; 99152; 99153; 99285; C1893; J0692; J0694; J0744; J1644; J2001; J2250; J3010; J7040; Q9966; Q9967

== ENCOUNTER 2023-11-12 01:19 | Inpatient (IN) | payer OTHER ==
--- OUTSIDE RECORDS SUMMARY | 2023-11-12 01:22 | XMS REPORT | Continuity of Care Document ---
Author Name Unknown Address [address] [place] [address] [employer] Address [address] [place] [address] Care Team Providers Care Ror Engineer Name Role Phone Unavailable Unavailable Unavailable Encounters Start Date/Time End Date/Time Encounter Type Admission Type Attending Clinicians Care Facility Care Department Encounter ID Source 2020-08-03 10:00:00 2020-08-03 10:00:00 Outpatient [facility] [id number] [facility]
[2023-11-12] MEDS ORDERED: dilTIAZem HCL 25 MG/5 ML VIAL IV ONE (01:54)
[2023-11-12] MEDS ORDERED: NA CHLORIDE 0.9% 100 ML ONE (01:54)
[2023-11-12 02:09] LABS: PT Prothrombin Time 15.8 SECONDS (9.5-12.5); Protime INR 1.45
[2023-11-12 02:11] LABS: Absolute Basophils 0.1 K/uL (0-0.5); Absolute Eosinophils 0.6 K/uL (0-0.5); Absolute Lymphocytes (CBC) 2.3 K/uL (0.7-4.9); Absolute Monocytes 0.7 K/uL (0.1-1.3); Eosinophils % 7.3 % (0-4.4); Hematocrit 37.9 % (36.0-45.0); Hemoglobin 12.8 g/dL (12.0-15.0); Lymphocytes % 26.6 % (15.3-44.8); MCHC 33.7 g/dL (32.0-36.0); MPV 8.7 fL (7.6-11.3); Monocytes % 8.4 % (3.3-12.3); Neutrophils % 56.7 % (41.7-73.7); Nucleated Red Blood Cells % 0.1 % (0-0); Platelets 333 thou/uL (152-406); RBC Red Blood Cell Count 4.12 M/uL (3.86-4.86); Red Cell Distribution Width 14.3 % (12.1-15.2)
[2023-11-12 02:32] LABS: ALT/SGPT 30 U/L (13-56); AST/SGOT 23 U/L (15-37); Albumin 3.9 g/dL (3.4-5.0); Albumin/Globulin Ratio 1.3 (1.1-1.8); Alkaline Phosphatase 87 U/L (45-117); Anion Gap 10.5 mEq/L (5.0-15.0); BUN Blood Urea Nitrogen 20 mg/dL (7-18); Bicarbonate 27 mEq/L (21-32); Bilirubin Total 0.4 mg/dL (0.2-1.0); Globulin 3.1 g/dL (2.3-3.5); Glomerular Filtration Rate 46 ml/min (=/>90); Glucose Level 126 mg/dL (74-106); Magnesium 2.1 mg/dL (1.6-2.4); NT PRO-BNP 518 pg/mL (<450); Potassium 3.5 mEq/L (3.5-5.1); Sodium Level 139 mEq/L (136-145); Troponin High Sensitivity 10.4 pg/mL (<58.9)
[2023-11-12 02:36] LABS: Bilirubin Direct < 0.2 mg/dL (0-0.2); Bilirubin Indirect, Calculated 0.2 mg/dL (0.2-0.8)
--- NOTE | 2023-11-12 04:29 | ER ---
Nurse's Notes [facility] Name: Moira Alvares Age: 88 yrs Sex: Female : 1935 Arrival Date: 11/12/2023 Time: 01:19 Bed 5 Private MD: Diagnosis: Persistent atrial fibrillation;Atrial fibrillation with rapid ventricular response Presentation: 11/11 01:26 Chief complaint: Patient states: I was recently here and told I have A-fib. I was at [facility] home tonight and my heart rate shot up to 110 and my blood pressure was in the 170's. Coronavirus screen: At this time, the client does not indicate any symptoms associated with coronavirus-19. Ebola Screen: No symptoms or risks identified at this time. Initial Sepsis Screen: Does the patient meet any 2 criteria? No. Patient's initial sepsis screen is negative. Does the patient have a suspected source of infection? No. Patient's initial sepsis screen is negative. Risk Assessment: Do you want to hurt yourself or someone else? Patient reports no desire to harm self or others. Onset of symptoms was November 12, 2023. Transition of care: patient was not received from another setting of care. 01:26 Method Of Arrival: Wheelchair [facility] 01:26 Acuity: VALERIA 2 jb4 Historical: - Allergies: 01:35 Demerol; jb4 02:09 PENICILLINS; jb4 - PMHx: 01:35 Hypercholesterolemia; Hypertensive disorder; a-fib (hysterectomy); jb4 - PSHx: 01:35 hysterectomy; jb4 - Immunization history:: Adult Immunizations up to date. - Infectious Disease History:: Denies. - Social history:: Smoking status: Patient denies any tobacco usage or history of. - Family history:: not pertinent. Screenin:00 [facility] ED Fall Risk Assessment (Adult) History of falling in the last 3 months, ha1 including since admission No falls in past 3 months (0 pts) Confusion or Disorientation No (0 pts) Intoxicated or Sedated No (0 pts) Impaired Gait No (0 pts) Mobility Assist Device Used Yes (1 pt) Altered Elimination No (0 pt) Score/Fall Risk Level 3 or more points = High Risk Oriented to surroundings, Maintained a safe environment, Educated pt \T\ family on fall prevention, incl call for assistance when getting out of bed, Hourly rounding (assess needs \T\ fall precautionary measures) done. 02:04 Abuse screen: Denies threats or abuse. Denies injuries from another. Nutritional ha1 screening: No deficits noted. Tuberculosis screening: No symptoms or risk factors identified. Assessment: 01:22 General: Appears comfortable, Behavior is calm, cooperative, appropriate for age. Pain: ha1 Denies pain. Neuro: Level of Consciousness is awake, alert, obeys commands, Oriented to person, place, time, situation, Appropriate for age. Cardiovascular: Reports irregular heart rate Denies chest pain, Heart tones present Capillary refill < 3 seconds Patient's skin is warm and dry. Rhythm is atrial fibrillation. Respiratory: Airway is patent Respiratory effort is even, unlabored, Respiratory pattern is regular, symmetrical. GI: No signs and/or symptoms were reported involving the gastrointestinal system. Abdomen is round non-distended. Derm: Skin is pink, warm \T\ dry. Musculoskeletal: Circulation, motion, and sensation intact. Range of motion: intact in all extremities. 02:20 Reassessment: Patient and/or family updated on plan of care and expected duration. Pain ha1 level reassessed. Patient is alert, oriented x 3, equal unlabored respirations, skin warm/dry/pink. 03:12 Reassessment: Patient and/or family updated on plan of care and expected duration. Pain ha1 level reassessed. Patient is alert, oriented x 3, equal unlabored respirations, skin warm/dry/pink. 04:00 Reassessment: Patient and/or family updated on plan of care and expected duration. Pain ha1 level reassessed. Patient is alert, oriented x 3, equal unlabored respirations, skin warm/dry/pink. Patient denies pain at this time. 05:00 Reassessment: Patient and/or family updated on plan of care and expected duration. Pain ha1 level reassessed. Patient is alert, oriented x 3, equal unlabored respirations, skin warm/dry/pink. Patient denies pain at this time. Vital Signs: 01:25 BP 161 / 102; Pulse 145; Resp 17 S; Temp 97.9; Pulse Ox 99% on R/A; ha1 01:26 Weight 52.16 kg (R); Height 4 ft. 11 in. ; jb4 02:00 BP 119 / 96; Pulse 105; Resp 16 S; Pulse Ox 98% on R/A; ha1 02:15 BP 120 / 89; Pulse 115; Resp 18 S; Pulse Ox 100% on R/A; ha1 02:30 BP 123 / 103; Pulse 112; Resp 16 S; Pulse Ox 98% on R/A; ha1 02:45 BP 119 / 89; Pulse 109; Resp 17 S; Pulse Ox 99% on R/A; ha1 03:00 BP 135 / 83; Pulse 102; Resp 15 S; Pulse Ox 98% on R/A; ha1 03:15 BP 123 / 82; Pulse 109; Resp 20 S; Pulse Ox 96% on R/A; ha1 03:30 BP 128 / 80; Pulse 113; Resp 15 S; Pulse Ox 97% on R/A; ha1 03:45 BP 126 / 82; Pulse 99; Resp 17 S; Pulse Ox 97% on R/A; ha1 04:00 BP 123 / 82; Pulse 109; Resp 17 S; Pulse Ox 97% on R/A; ha1 04:15 BP 133 / 72; Pulse 120; Resp 18 S; Pulse Ox 98% on R/A; ha1 04:30 BP 135 / 85; Pulse 102; Resp 18 S; Pulse Ox 98% on R/A; ha1 04:45 BP 129 / 100; Pulse 96; Resp 18 S; Pulse Ox 98% on R/A; ha1 05:00 BP 131 / 75; Pulse 101; Resp 17 S; Pulse Ox 97% on R/A; ha1 05:15 BP 127 / 78; Pulse 107; Resp 16 S; Pulse Ox 98% on R/A; ha1 05:30 BP 133 / 87; Pulse 109; Resp 16 S; Pulse Ox 98% on R/A; ha1 05:45 BP 134 / 90; Pulse 98; Resp 17 S; Pulse Ox 97% on R/A; ha1 06:00 BP 131 / 88; Pulse 105; Resp 17 S; Pulse Ox 97% on R/A; ha1 01:26 Body Mass Index 23.23 (52.16 kg, 149.86 cm) 4 ED Course: 01:22 Patient arrived in ED. 4 01:22 Patient has correct armband on for positive identification. Placed in gown. Bed in low ha1 position. Call light in reach. Side rails up X 1. Adult w/ patient. 01:22 Client placed on continuous cardiac and pulse oximetry monitoring. NIBP monitoring ha1 applied. flight kitchen manager on. :22 Door closed. Noise minimized. Warm blanket given. Pillow given. ha1 01:29 EKG done, by ED staff, reviewed by Suhail Jaeger MD. ha1 01:34 Triage completed. jb4 01:35 Arm band placed on right wrist. EKG completed in triage. Results shown to MD. jb4 01:36 Suhail Jaeger MD is Attending Physician. sp4 01:42 Inserted saline lock: 22 gauge in right antecubital area, using aseptic technique. ha1 Blood collected. 01:48 Basic Metabolic Panel Sent. ha1 03:01 XRAY Chest (1 view) In Process Unspecified. EDMS 04:28 Ariel Marino MD is Hospitalizing Provider. sp4 05:00 Provided Education on: need for admit . ha1 06:30 No provider procedures requiring assistance completed. Patient admitted, IV remains in ha1 place. Administered Medications: 01:55 Drug: Diltiazem IVP 10 mg IVP once; Over 2 minutes Route: IVP; Site: right antecubital; ha1 02:15 Follow up: Response: No adverse reaction ha1 02:10 Drug: Diltiazem IV 5 mg/hr IV at calculated rate See Administration Instructions; ha1 (standard dilution 125 mg diltiazem mixed in 125 mL NS; final concentration 1mg/mL). Recommended max rate 15 mg/hr; Titrate 5 mg/hr as often as every 15 minutes to achieve goal (see titration policy); Goal parameter HR less than 100 bpm Route: IV; Rate: calculated rate; Site: right antecubital; 06:00 Follow up: Response: No adverse reaction; IV Status: Infusion continued; IV Intake: [id number] Medication: 03:18 VIS not applicable for this client. ha1 Intake: 06:00 IV: 30ml; Total: 30ml. ha1 Outcome: 04:29 Decision to Hospitalize by Provider. sp4 06:14 Admitted to ICU accompanied by nurse, accompanied by tech, via stretcher, room 5, on ha1 monitor, with chart, 06:14 Condition: stable ha1 06:14 Instructed on the need for admit, Demonstrated understanding of instructions, 06:15 Patient left the ED. vc1 Signatures: Dispatcher [employer] EDJuan Miguel Chopra RN RN jb4 Marci Hassan RN RN vc1 Sabina Garrido RN RN ha1 Suhail Jaeger MD MD sp4 Corrections: (The following items were deleted from the chart) 06:33 06:32 Response: No adverse reaction; IV Status: Infusion continued; IV Intake: 30ml ha1 ha1
--- NOTE | 2023-11-12 04:29 | EDPHYS ---
Physician Documentation [facility] Name: Moira Alvares Age: 88 yrs Sex: Female : 1935 Arrival Date: 11/12/2023 Time: 01:19 Bed 5 Private MD: ED Physician Suhail Jaeger HPI: 11/11 01:39 This 88 yrs old Female presents to ER via Wheelchair with complaints of sp4 tachycardia . 04:12 88-year-old female presents with acute onset of racing heart and elevated blood sp4 pressure.. Patient has history of atrial fibrillation. During her recent admission 10/30/2023 patient was started on sotalol and Eliquis for atrial fibrillation with RVR. . Historical: - Allergies: 01:35 Demerol; jb4 02:09 PENICILLINS; jb4 - PMHx: 01:35 Hypercholesterolemia; Hypertensive disorder; a-fib (hysterectomy); jb4 - PSHx: 01:35 hysterectomy; jb4 - Immunization history:: Adult Immunizations up to date. - Infectious Disease History:: Denies. - Social history:: Smoking status: Patient denies any tobacco usage or history of. - Family history:: not pertinent. ROS: 04:12 Constitutional: Negative for fever, chills, and weight loss, positive tachycardia sp4 positive elevated blood pressure 04:12 All other systems are negative, Exam: 04:12 Constitutional: This is a well developed, well nourished patient who is awake, alert, sp4 and in no acute distress. Head/Face: Normocephalic, atraumatic. Eyes: Pupils equal round and reactive to light, extra-ocular motions intact. Lids and lashes normal. Conjunctiva and sclera are not injected. Cornea within normal limits. Periorbital areas with no swelling, redness, or edema. ENT: Nares patent. No nasal discharge, no septal abnormalities noted. Tympanic membranes are normal and external auditory canals are clear. Oropharynx with no redness, swelling, or masses, exudates, or evidence of obstruction, uvula midline. Mucous membranes moist. Neck: Trachea midline, no thyromegaly or masses palpated, and no cervical lymphadenopathy. Supple, full range of motion without nuchal rigidity, or vertebral point tenderness. Chest/axilla: Normal chest wall appearance and motion. Nontender with no deformity. No lesions are appreciated. Cardiovascular: Irregularly irregular heart rate with apparent atrial fibrillation on the monitor. No gallops, murmurs, or rubs. Normal PMI, no JVD. No pulse deficits. Respiratory: Lungs have equal breath sounds bilaterally, clear to auscultation and percussion. No rales, rhonchi or wheezes noted. No increased work of breathing, no retractions or nasal flaring. Abdomen/GI: Soft, with normal bowel sounds. No distension or tympany. No guarding or rebound. No evidence of tenderness throughout. Back: No spinal tenderness. No costovertebral tenderness. Skin: Warm, dry with normal turgor. Normal color with no rashes, no lesions, and no evidence of cellulitis. MS/ Extremity: Pulses equal, no cyanosis. Neurovascular intact. Full, normal range of motion. Neuro: Awake and alert, GCS 15, oriented to person, place, time, and situation. Cranial nerves II-XII grossly intact. Motor strength 5/5 in all extremities. Sensory grossly intact. Psych: Awake, alert, with orientation to person, place and time. Behavior, mood, and affect are within normal limits 04:12 ECG was reviewed by the Attending Physician. EKG time 0 128. Atrial fibrillation at the rate of 142, left axis deviation Vital Signs: 01:25 BP 161 / 102; Pulse 145; Resp 17 S; Temp 97.9; Pulse Ox 99% on R/A; ha1 01:26 Weight 52.16 kg (R); Height 4 ft. 11 in. ; jb4 02:00 BP 119 / 96; Pulse 105; Resp 16 S; Pulse Ox 98% on R/A; ha1 02:15 BP 120 / 89; Pulse 115; Resp 18 S; Pulse Ox 100% on R/A; ha1 02:30 BP 123 / 103; Pulse 112; Resp 16 S; Pulse Ox 98% on R/A; ha1 02:45 BP 119 / 89; Pulse 109; Resp 17 S; Pulse Ox 99% on R/A; ha1 03:00 BP 135 / 83; Pulse 102; Resp 15 S; Pulse Ox 98% on R/A; ha1 03:15 BP 123 / 82; Pulse 109; Resp 20 S; Pulse Ox 96% on R/A; ha1 03:30 BP 128 / 80; Pulse 113; Resp 15 S; Pulse Ox 97% on R/A; ha1 03:45 BP 126 / 82; Pulse 99; Resp 17 S; Pulse Ox 97% on R/A; ha1 04:00 BP 123 / 82; Pulse 109; Resp 17 S; Pulse Ox 97% on R/A; ha1 04:15 BP 133 / 72; Pulse 120; Resp 18 S; Pulse Ox 98% on R/A; ha1 04:30 BP 135 / 85; Pulse 102; Resp 18 S; Pulse Ox 98% on R/A; ha1 04:45 BP 129 / 100; Pulse 96; Resp 18 S; Pulse Ox 98% on R/A; ha1 05:00 BP 131 / 75; Pulse 101; Resp 17 S; Pulse Ox 97% on R/A; ha1 05:15 BP 127 / 78; Pulse 107; Resp 16 S; Pulse Ox 98% on R/A; ha1 05:30 BP 133 / 87; Pulse 109; Resp 16 S; Pulse Ox 98% on R/A; ha1 05:45 BP 134 / 90; Pulse 98; Resp 17 S; Pulse Ox 97% on R/A; ha1 06:00 BP 131 / 88; Pulse 105; Resp 17 S; Pulse Ox 97% on R/A; ha1 01:26 Body Mass Index 23.23 (52.16 kg, 149.86 cm) jb4 MDM: 01:40 Patient medically screened. sp4 04:18 Differential Diagnosis altered mental status, sepsis, flu, Atrial fibrillation with sp4 RVR. Data reviewed: vital signs, nurses notes, lab test result(s), EKG, radiologic studies, plain films. ED course: EXAM DESCRIPTION: Chest Single View CLINICAL HISTORY: CHEST PAIN COMPARISON: None TECHNIQUE: Single AP view of the chest. FINDINGS: Lung volumes diminished. Bronchovascular crowding. Cardiac silhouette is normal in size. No pneumothorax. No large pleural effusion. No focal consolidation. No acute bony finding. Degenerative changes of bilateral shoulders and visualized spine. IMPRESSION: 1. No acute cardiopulmonary findings. 2. Low lung volumes with associated hypoventilatory changes. . 11/11 01:40 Order name: Basic Metabolic Panel; Complete Time: 03:52 sp4 11/11 01:40 Order name: CBC with Diff; Complete Time: 03:52 sp4 05/08 01:40 Order name: LFT's; Complete Time: 03:52 sp11/11 01:40 Order name: Magnesium; Complete Time: 03:52 11/11 01:40 Order name: NT PRO-BNP; Complete Time: 03:52 11/11 01:40 Order name: PT-INR; Complete Time: 03:52 11/11 01:40 Order name: Troponin HS; Complete Time: 03:52 11/11 01:40 Order name: TSH; Complete Time: 03:52 11/11 01:40 Order name: T4 Free; Complete Time: 03:52 11/11 01:40 Order name: XRAY Chest (1 view) 11/11 04:08 Order name: CONS Physician Consult [facility] 11/11 01:40 Order name: Cardiac monitoring; Complete Time: 01:48 11/11 01:40 Order name: EKG - Nurse/Tech; Complete Time: :48 11/11 01:40 Order name: IV Saline Lock; Complete Time: :48 11/11 01:40 Order name: Labs collected and sent; Complete Time: :48 11/11 01:40 Order name: O2 Per Protocol; Complete Time: :48 11/11 01:40 Order name: O2 Sat Monitoring; Complete Time: :48 sp4 EC:12 Rate is 142 beats/min. Rhythm is irregularly irregular, A fib. Left axis deviation sp4 noted. QRS interval is normal. QT interval is normal. T waves are Normal. No ST changes noted. Clinical impression: No evidence of ischemia. Interpreted by me. Reviewed by me. Administered Medications: 01:55 Drug: Diltiazem IVP 10 mg IVP once; Over 2 minutes Route: IVP; Site: right antecubital; ha1 02:15 Follow up: Response: No adverse reaction ha1 02:10 Drug: Diltiazem IV 5 mg/hr IV at calculated rate See Administration Instructions; ha1 (standard dilution 125 mg diltiazem mixed in 125 mL NS; final concentration 1mg/mL). Recommended max rate 15 mg/hr; Titrate 5 mg/hr as often as every 15 minutes to achieve goal (see titration policy); Goal parameter HR less than 100 bpm Route: IV; Rate: calculated rate; Site: right antecubital; 06:00 Follow up: Response: No adverse reaction; IV Status: Infusion continued; IV Intake: [id number] Disposition Summary: 11/12/23 04:29 Hospitalization Ordered Notes: Hospitalization Status: Inpatient Admission sp4 Provider: Ariel Marino sp4 Condition: Stable sp4 Problem: new sp4 Symptoms: have improved sp4 Bed/Room Type: Standard sp4 Location: Intensive Care Unit(11/12/23 05:42) vk Room Assignment: 5-(11/12/23 05:42) vk Diagnosis - Persistent atrial fibrillation sp4 - Atrial fibrillation with rapid ventricular response sp4 Forms: - Medication Reconciliation Form sp4 - SBAR form sp4 - Leadership Thank You Letter sp4 Critical care time excluding procedures: 04:27 Critical care time: Bedside Care: 46 minutes, Consultation: 12 minutes, Family sp4 Intervention: 12 minutes. Total time: 70 minutes Signatures: Dispatcher [employer] EDJuan Miguel Chopra RN RN jb4 Sabina Garrido RN RN ha1 Suhail Jaeger MD MD sp4 Angela Santiago Corrections: (The following items were deleted from the chart) 01:41 01:41 BASIC METABOLIC PANEL+C.LAB.BRZ ordered. EDMS EDMS 01:41 01:41 CBC+H.LAB.BRZ ordered. EDMS EDMS 01:41 01:41 HEPATIC FUNCTION+C.LAB.BRZ ordered. EDMS EDMS 01:41 01:41 MAGNESIUM+C.LAB.BRZ ordered. EDMS EDMS 01:41 01:41 PROBNP+C.LAB.BRZ ordered. EDMS EDMS 01:41 01:41 PROTIME (+INR)+COAG.LAB.BRZ ordered. EDMS EDMS 01:41 01:41 Troponin High Sensitivity+C.LAB.BRZ ordered. EDMS EDMS 01:41 01:41 Chest Single View+RAD.RAD.BRZ ordered. EDMS EDMS 01:41 01:41 THYROID STIMULAT HORMONE+C.LAB.BRZ ordered. EDMS EDMS 01:41 01:41 T4 FREE+C.LAB.BRZ ordered. EDWI EDMS 05:42 04:29 Telemetry/MedSurg (Inpatient) sp4 vk 05:42 04:29 sp4 vk
[2023-11-12] MEDS ORDERED: ALBUTEROL 2.5 MG/3 ML NEB SOL NEB PRN (05:29)
[2023-11-12] MEDS ORDERED: ONDANSETRON 4 MG/2 ML VIAL IV PRN (05:29)
[2023-11-12] MEDS ORDERED: MORPHINE 4 MG/ML SYR IV PRN (05:29)
[2023-11-12] MEDS ORDERED: ACETAMINOPHEN 325 MG TABLET PO PRN (05:29)
[2023-11-12] MEDS ORDERED: ZOLPIDEM TARTRATE 5 MG TABLET PO PRN (05:29)
[2023-11-12 06:06] VITALS: BMI 23.2
[2023-11-12] MEDS: DILTIAZEM INJ 125 MG/25 ML 125 MG in NA CHLORIDE 0.9% 100 ML IV SCH (06:30)
[2023-11-12] MEDS: D5.45NS W/KCL 20MEQ 1,000 ML IV SCH ×2 (07:10→17:37)
[2023-11-12] MEDS: PNEUMOCOCCAL VACCINE 0.5 ML IMVAC ONE (08:00)
[2023-11-12] MEDS: APIXABAN 5 MG TABLET PO SCH ×2 (08:33→21:16)
[2023-11-12 09:26] LABS: Specific Gravity 1.009 (1.005-1.030); Urine Bilirubin NEGATIVE (Negative); Urine Blood Negative (Negative); Urine Clarity Clear (Clear); Urine Color Colorless (Yellow); Urine Glucose NEGATIVE (Negative); Urine Ketones NEGATIVE (Negative); Urine Microscopic Reflex YN NO UMIC; Urine Nitrite NEGATIVE (Negative); Urine Protein NEGATIVE (Negative); Urine Urobilinogen Normal (Normal); Urine pH 7.5 (5.0-7.0)
[2023-11-12] MEDS: SOTALOL HCL 80 MG TAB PO SCH (11:05)
--- NOTE | 2023-11-12 11:29 | P.CNS ---
Date of Consult: 11/12/23 Chief Complaint: AF w RVR History of Present Illness: Patient with PMH of atrial fibrillation, hypertension, HLD presented with new onset palpitations yesterday, denies any chest pain, no SOB, no syncope. Allergies meperidine Allergy (Verified 10/30/23 16:29) Itching Home Medications: RX: Apixaban [Eliquis] 5 mg PO BID #60 11/02/23 RX: Sotalol HCl [Betapace AF] 40 mg PO DAILY #30 11/02/23 RX: Losartan Potassium 100 mg PO DAILY 11/12/23 RX: Metronidazole 250 mg PO Q8H 11/12/23 RX: Simvastatin 20 mg PO BEDTIME 11/12/23 - Past Medical/Surgical History Diabetic: No -: hysterectomy - Social History Smoking Status: Former smoker Alcohol use: No CD- Drugs: No Caffeine use: No Place of Residence: Home Review of Systems 10-point ROS is otherwise unremarkable Physical Examination Temp Pulse Resp BP Pulse Ox 97.2 F 81 17 144/78 H 100 11/12/23 08:00 11/12/23 10:00 11/12/23 10:00 11/12/23 10:00 11/12/23 10:00 General: Alert, Oriented x3 HEENT: Atraumatic Neck: Supple Respiratory: Clear to auscultation bilaterally Cardiovascular: No edema, Irregular heart rate/rhythm Gastrointestinal: Normal bowel sounds Laboratory Data (last 24 hrs) 11/12/23 11/12/23 11/12/23 02:00 02:00 02:00 WBC 8.80 Hgb 12.8 Hct 37.9 Plt Count 333 PT 15.8 H INR 1.45 Sodium 139 Potassium 3.5 BUN 20 H Creatinine 1.15 H Glucose 126 H Magnesium 2.1 Total Bilirubin 0.4 AST 23 ALT 30 Alkaline Phosphatase 87 - Problems (1) HLD (hyperlipidemia) Current Visit: Yes Status: Acute Plan: continue crestor 10 mg daily (2) Atrial fibrillation Current Visit: No Status: Acute Plan: Patient is on cardizem drip, rate better controlled, patient was discharged on small dose of sotalol last time. start Sotalol 80 mg po BID, EKG after 3rd dose. Continue Eliquis 5 mg po BID Wean off Cardizem drip slowly for HR less than 100. (3) HTN (hypertension) Current Visit: No Status: Acute Plan: Continue Losartan 100 mg daily
--- NOTE | 2023-11-12 13:02 | RAD REPORT ---
EXAM DESCRIPTION: RAD - Chest Single View - 11/12/2023 2:59 am CLINICAL HISTORY: CHEST PAIN COMPARISON: None TECHNIQUE: Single AP view of the chest. FINDINGS: Lung volumes diminished. Bronchovascular crowding. Cardiac silhouette is normal in size. No pneumothorax. No large pleural effusion. No focal consolidation. No acute bony finding. Degenerative changes of bilateral shoulders and visualized spine. IMPRESSION: 1. No acute cardiopulmonary findings. 2. Low lung volumes with associated hypoventilatory changes. Electronically signed by: Nolan Nobles MD 11/12/2023 03:39 AM CDT Due to temporary technical issues with the PACS/Fluency reporting system, reports are being signed by the in house radiologist without review as a courtesy to ensure prompt reporting. The interpreting r adiologist is fully responsible for the content of the report.
--- NOTE | 2023-11-12 17:48 | P.HP ---
Certification for Inpatient Patient admitted to: Inpatient With expected LOS: >2 Midnights Practitioner: I am a practitioner with admitting privileges, knowledge of patient current condition, hospital course, and medical plan of care. Services: Services provided to patient in accordance with Admission requirements found in Title 42 Section 412.3 of the Code of Federal Regulations Patient History Date of Service: 11/12/23 Reason for admission: AF w RVR History of Present Illness: Moira had rapid palpitations at home. She is on Sotalol small dose as with regular dose she developed severe bradycardia. She has no other ss. Allergies meperidine Allergy (Verified 10/30/23 16:29) Itching Home Medications: Apixaban [Eliquis] 5 mg PO BID #60 11/02/23 Sotalol HCl [Betapace AF] 40 mg PO DAILY #30 11/02/23 Losartan Potassium 100 mg PO DAILY 11/12/23 Metronidazole 250 mg PO Q8H 11/12/23 Simvastatin 20 mg PO BEDTIME 11/12/23 - Past Medical/Surgical History Has patient received pneumonia vaccine in the past: Yes Diabetic: No -: hysterectomy - Social History Smoking Status: Never smoker Alcohol use: No CD- Drugs: No Caffeine use: No Place of Residence: Home Review of Systems 10-point ROS is otherwise unremarkable General: Weakness Physical Examination - Vital Signs Temperature: 98.2 F Blood Pressure: 119/68 Pulse: 60 Respirations: 16 Pulse Ox (%): 98 - Physical Exam General: Alert, In no apparent distress HEENT: Atraumatic, PERRLA, Mucous membr. moist/pink, EOMI, Sclerae nonicteric Neck: Supple, 2+ carotid pulse no bruit, No LAD, Without JVD or thyroid abnormality Respiratory: Clear to auscultation bilaterally, Normal air movement Cardiovascular: Regular rate/rhythm (bradycardia after dilt in er.) Gastrointestinal: Normal bowel sounds, No tenderness Musculoskeletal: No tenderness Integumentary: No rashes Neurological: Normal gait, Normal speech, Normal strength at 5/5 x4 extr, Normal tone, Normal affect Lymphatics: No axilla or inguinal lymphadenopathy - Studies Laboratory Data (last 24 hrs) 11/12/23 11/12/23 11/12/23 02:00 02:00 02:00 WBC 8.80 Hgb 12.8 Hct 37.9 Plt Count 333 PT 15.8 H INR 1.45 Sodium 139 Potassium 3.5 BUN 20 H Creatinine 1.15 H Glucose 126 H Magnesium 2.1 Total Bilirubin 0.4 AST 23 ALT 30 Alkaline Phosphatase 87 Assessment and Plan - Problems (Diagnosis) (1) Atrial fibrillation Current Visit: No Status: Acute Plan: Sotalol 80 mg bid if not trent to tolerate 40 mg bid eliquis bid Dr. Barajas on case. - Advance Directives Does patient have a Living Will: No Does patient have a Durable POA for Healthcare: No
[2023-11-12] MEDS: metroNIDAZOLE 500 MG TABLET PO SCH (18:11)
[2023-11-12] MEDS ORDERED: HOME MED 1 EA UNK (Simvastatin [Simvastatin] 20 MG Tablet) PO SCH (21:00)
[2023-11-12] MEDS: ATORVASTATIN 10 MG TAB PO SCH (21:15)
[2023-11-13 05:15] LABS: Absolute Basophils 0.1 K/uL (0-0.5); Absolute Eosinophils 0.5 K/uL (0-0.5); Absolute Lymphocytes (CBC) 2.1 K/uL (0.7-4.9); Absolute Monocytes 0.7 K/uL (0.1-1.3); Absolute Neutrophil 4.7 K/uL (1.8-8.0); Basophils % 0.6 % (0-1.3); Eosinophils % 6.2 % (0-4.4); Hematocrit 37.9 % (36.0-45.0); Hemoglobin 12.6 g/dL (12.0-15.0); Lymphocytes % 26.3 % (15.3-44.8); MCH 30.6 pg (27.0-35.0); MCHC 33.2 g/dL (32.0-36.0); MCV 92.3 fL (80-100); MPV 8.6 fL (7.6-11.3); Monocytes % 8.2 % (3.3-12.3); Neutrophils % 58.7 % (41.7-73.7); Nucleated Red Blood Cells % 0.1 % (0-0); Platelets 280 thou/uL (152-406); RBC Red Blood Cell Count 4.11 M/uL (3.86-4.86); Red Cell Distribution Width 14.5 % (12.1-15.2)
[2023-11-13 05:23] LABS: Anion Gap 7.5 mEq/L (5.0-15.0); Magnesium 1.9 mg/dL (1.6-2.4); Potassium 3.5 mEq/L (3.5-5.1)
[2023-11-13] MEDS: SOTALOL HCL 80 MG TAB PO SCH (06:33)
--- NOTE | 2023-11-13 07:47 | RAD REPORT ---
EXAM DESCRIPTION: US - Abdomen Exam Limited - 11/13/2023 5:40 am CLINICAL HISTORY: Abdominal pain. COMPARISON: None. FINDINGS: The gallbladder wall is not thickened. A gallstone is not seen. The biliary tree is normal caliber. 14 centimeter hepatic cyst without significant change from July [address]23 CT IMPRESSION: Unremarkable gallbladder ultrasound. 14 centimeter hepatic cyst without significant change from July [address]23 CT
[2023-11-13] MEDS: LOSARTAN POTASSIUM 50 MG TABLET PO SCH (08:14)
[2023-11-13 08:16] VITALS: TEMP 97
[2023-11-13 08:39] VITALS: BP 122/67
[2023-11-13] MEDS ORDERED: HOME MED 1 EA UNK (Losartan Potassium [Losartan Potassium] 100 MG Tablet) PO SCH (09:00)
[2023-11-13 09:30] VITALS: O2SAT 100
--- NOTE | 2023-11-13 10:06 | P.PN ---
Subjective Date of Service: 11/13/23 Chief Complaint: AF w RVR Subjective: New changes (patient converted to sinus rhythm) Review of Systems 10-point ROS is otherwise unremarkable Physical Examination - Vital Signs Temperature: 97.0 F Blood Pressure: 122/67 Pulse: 50 Respirations: 19 Pulse Ox (%): 100 - Physical Exam General: Alert, Oriented x3 HEENT: Atraumatic Neck: Supple Respiratory: Clear to auscultation bilaterally Cardiovascular: No edema, Normal S1 S2 Gastrointestinal: Normal bowel sounds Assessment And Plan - Current Problems (Diagnosis) (1) HLD (hyperlipidemia) Current Visit: Yes Status: Acute Plan: continue crestor 10 mg daily (2) Atrial fibrillation Current Visit: No Status: Acute Plan: Patient converted into sinus rhythm, sinus bradycardia now, patient was discharged on small dose of sotalol last time. Sotalol 40 mg po BID, EKG after 3rd dose (QTc is less than 500). Continue Eliquis 5 mg po BID (3) HTN (hypertension) Current Visit: No Status: Acute Plan: Continue Losartan 100 mg daily
--- NOTE | 2023-11-13 14:05 | EKG ---
Test Date: 2023-11-12 Test Time: 01:28:22 Log Roper: SERVANDO MEASUREMENT RESULTS: Intervals: Rate: 142 SC: QRSD: 78 QT: 320 QTc: 492 [place]: P: SC: QRS: -30 T: 115 INTERPRETIVE STATEMENTS: Atrial fibrillation Left axis deviation Abnormal ECG Compared to ECG 11/01/2023 04:36:45 Sinus tachycardia no longer present ST (T wave) deviation no longer present Possible ischemia no longer present Electronically Signed On 11-13-23 14:00:39 CDT by Guilherme Chacon
--- NOTE | 2023-11-17 13:33 | EKG ---
Test Date: 2023-11-13 Test Time: 06:08:09 Bed Setter: GIL MEASUREMENT RESULTS: Intervals: Rate: 49 VT: 146 QRSD: 84 QT: 516 QTc: 466 Barry: P: -12 VT: 146 QRS: -23 T: -8 INTERPRETIVE STATEMENTS: Marked sinus bradycardia T wave abnormality, consider anterior ischemia Abnormal ECG Compared to ECG 11/12/2023 01:28:22 T-wave abnormality now present Possible ischemia now present Atrial fibrillation no longer present Left-axis deviation no longer present Electronically Signed On 11-17-23 13:20:54 CDT by Guilherme Chacon
== END 2023-11-13 11:24 | disposition home or self-care (01) | DRG 310 ==
LOC: ER 01:19 → ERHOLD 04:04 → 3RD-ICU 05:57
PROVIDERS: ADMIT Internal Medicine; ATTEND Internal Medicine
DX: I48.19 Other persistent atrial fibrillation (principal); I10 Essential (primary) hypertension; E78.00 Pure hypercholesterolemia, unspecified; Z88.0 Allergy status to penicillin; Z88.5 Allergy status to narcotic agent; Z88.8 Allergy status to other drugs, medicaments and biological substances; Z79.01 Long term (current) use of anticoagulants; Z90.710 Acquired absence of both cervix and uterus; Z79.899 Other long term (current) drug therapy; Z87.891 Personal history of nicotine dependence
CPT/HCPCS: 36415; 71045; 76705; 80048; 80076; 81003; 83735; 83880; 84439; 84443; 84484; 85025; 85610; 93005; 94760; 96365; 96366; 96375; 99285

== ENCOUNTER 2024-07-20 10:56 | Emergency (ER) | payer OTHER ==
--- OUTSIDE RECORDS SUMMARY | 2024-07-20 11:00 | XMS REPORT | Continuity of Care Document ---
Author Name Unknown Address [address] [place] [address] thconnect Address [address] [place] [address] Care Team Providers Care Pigment Presser Name Role Phone Unavailable Unavailable Unavailable Encounters Start Date/Time End Date/Time Encounter Type Admission Type Attending Clinicians Care Facility Care Department Encounter ID Source 2020-08-03 10:00:00 2020-08-03 10:00:00 Outpatient [facility] [id number] [facility]
[2024-07-20 12:12] LABS: Absolute Basophils 0.1 K/uL (0-0.5); Absolute Eosinophils 0.7 K/uL (0-0.5); Absolute Lymphocytes (CBC) 1.7 K/uL (0.7-4.9); Absolute Monocytes 0.6 K/uL (0.1-1.3); Absolute Neutrophil 5.5 K/uL (1.8-8.0); Basophils % 0.8 % (0-1.3); Eosinophils % 8.1 % (0-4.4); Hemoglobin 13.8 g/dL (12.0-15.0); Lymphocytes % 19.9 % (15.3-44.8); MCH 31.2 pg (27.0-35.0); MCHC 33.6 g/dL (32.0-36.0); MCV 93.1 fL (80-100); MPV 8.5 fL (7.6-11.3); Neutrophils % 64.2 % (41.7-73.7); Platelets 272 thou/uL (152-406); Red Cell Distribution Width 13.6 % (12.1-15.2)
--- NOTE | 2024-07-20 12:45 | RAD REPORT ---
Procedure: Chest Single View HISTORY: Cough COMPARISON: 2017 FINDINGS: The lungs appear clear of acute infiltrate. Bilateral pulmonary opacities without significant change presumably scarring. No significant pleural effusion noted. The heart is normal size. IMPRESSION: No acute abnormality is displayed.
[2024-07-20 13:07] LABS: ALT/SGPT 22 U/L (13-56); AST/SGOT 21 U/L (15-37); Albumin/Globulin Ratio 1.2 (1.1-1.8); Alkaline Phosphatase 105 U/L (45-117); Anion Gap 4.9 mEq/L (5.0-15.0); BUN Blood Urea Nitrogen 25 mg/dL (7-18); Bicarbonate 31 mEq/L (21-32); Bilirubin Total 0.8 mg/dL (0.2-1.0); Globulin 3.4 g/dL (2.3-3.5); Glomerular Filtration Rate 51 ml/min (=/>90); Glucose Level 118 mg/dL (74-106); Potassium 3.9 mEq/L (3.5-5.1); Protein, Total 7.4 g/dL (6.4-8.2); Sodium Level 138 mEq/L (136-145); Troponin High Sensitivity 8.3 pg/mL (<58.9)
[2024-07-20 13:10] LABS: Bilirubin Direct < 0.2 mg/dL (0-0.2); Bilirubin Indirect, Calculated 0.6 mg/dL (0.2-0.8)
[2024-07-20] MEDS ORDERED: NA CHLORIDE 0.9% 500 ML ONE (14:03)
--- NOTE | 2024-07-20 14:15 | ER ---
Nurse's Notes [facility] Name: Moira Alvares Age: 89 yrs Sex: Female : 1935 Arrival Date: 07/20/2024 Time: 10:56 Bed 8 Private MD: Diagnosis: Syncope Near Presentation: 07/20 11:13 Chief complaint: Patient states: Was standing cooking breakfast and started feeling cm10 weak. Pt denies having dizziness, denies chest pain and shortness of breath. Pt reports that she feels weak and was clammy when this happened. Coronavirus screen: Client denies travel out of the [place] in the last 14 days. Ebola Screen: Patient denies travel to an Ebola-affected area in the 21 days before illness onset. Initial Sepsis Screen: Does the patient meet any 2 criteria? No. Patient's initial sepsis screen is negative. Does the patient have a suspected source of infection? No. Patient's initial sepsis screen is negative. Risk Assessment: Do you want to hurt yourself or someone else? Patient reports no desire to harm self or others. Onset of symptoms was July 20, 2024. 11:13 Method Of Arrival: Wheelchair cm10 11:13 Acuity: VALERIA 3 cm10 Triage Assessment: 11:15 General: Appears in no apparent distress. comfortable, Behavior is calm, cooperative. cm10 Neuro: No deficits noted. Level of Consciousness is awake, alert, obeys commands, Oriented to person, place, time, situation, Appropriate for age. Respiratory: No deficits noted. Airway is patent Respiratory effort is even, unlabored, Respiratory pattern is regular, symmetrical. Historical: - Allergies: 11:15 Demerol; cm10 11:15 PENICILLINS; cm10 - PMHx: 11:15 a-fib (hysterectomy); Hypercholesterolemia; Hypertensive disorder; cm10 - PSHx: 11:15 hysterectomy; cm10 - Immunization history:: Adult Immunizations up to date. - Infectious Disease History:: Denies. - Social history:: Smoking status: Patient denies any tobacco usage or history of. - Family history:: not pertinent. Screenin:36 [facility] ED Fall Risk Assessment (Adult) History of falling in the last 3 months, db including since admission No falls in past 3 months (0 pts) Confusion or Disorientation No (0 pts) Intoxicated or Sedated No (0 pts) Impaired Gait No (0 pts) Mobility Assist Device Used No (0 pt) Altered Elimination No (0 pt) Score/Fall Risk Level 0 - 2 = Low Risk Oriented to surroundings, Maintained a safe environment. Abuse screen: Denies threats or abuse. Denies injuries from another. Nutritional screening: No deficits noted. Tuberculosis screening: No symptoms or risk factors identified. Assessment: 14:36 Reassessment: Patient appears in no apparent distress at this time. Patient and/or db family updated on plan of care and expected duration. Pain level reassessed. Patient is alert, oriented x 3, equal unlabored respirations, skin warm/dry/pink. General: Appears in no apparent distress. comfortable, Behavior is calm, cooperative. Pain: Denies pain. Neuro: Level of Consciousness is awake, alert, obeys commands, Oriented to person, place, time, situation. Respiratory: Airway is patent Respiratory effort is even, unlabored, Respiratory pattern is regular, symmetrical. Vital Signs: 11:13 BP 133 / 73; Pulse 50; Resp 15; Temp 97.6(O); Pulse Ox 99% on R/A; Weight 49.44 kg; cm10 Height 4 ft. 10 in. ; Pain 0/10; 14:00 BP 143 / 70; Pulse 53; Resp 16; Pulse Ox 97% on R/A; db 11:13 Body Mass Index 22.78 (49.44 kg, 147.32 cm) cm10 11:13 Pain Scale: Adult cm10 ED Course: 11:01 Patient arrived in ED. sj2 11:15 Triage completed. cm10 11:15 Benny Jacobs MD is Attending Physician. rt 11:16 Arm band placed on right wrist. Patient placed in waiting room, in a wheelchair. cm10 12:00 Basic Metabolic Panel Sent. ty 12:00 CBC with Diff Sent. ty 12:00 LFT's Sent. ty 12:00 Troponin HS Sent. ty 12:00 Initial lab(s) drawn, by me, sent to lab. Inserted saline lock: 22 gauge in right ty antecubital area, using aseptic technique. Blood collected. Flushed with 10 mL NS. 12:36 Chest Single View In Process Unspecified. EDMS 14:36 Patient has correct armband on for positive identification. Bed in low position. Call db light in reach. Side rails up X 1. Provided Education on: DISCHARGE AND FOLLOWUP. Pulse ox on. NIBP on. Warm blanket given. 14:36 No provider procedures requiring assistance completed. IV discontinued, intact, db bleeding controlled, No redness/swelling at site. Administered Medications: 13:50 Drug: NS 0.9% IV 500 ml IV at 500 ml once; to be given as a bolus over 60 minutes db Route: IV; Rate: 500 ml; Site: right antecubital; 14:34 Follow up: Response: No adverse reaction; IV Status: Completed infusion; IV Intake: db 500ml Medication: 14:36 VIS not applicable for this client. db Intake: 14:34 IV: 500ml; Total: 500ml. db Outcome: 14:14 Discharge ordered by . rt 14:36 Discharged to home ambulatory, with family, db 14:36 Condition: stable 14:36 Discharge instructions given to patient, Instructed on discharge instructions, follow up and referral plans. 14:37 Patient left the ED. db Signatures: Dispatcher [employer] Torrie Valle, RN RN Benny Wallace MD MD rt Danuta Orourke, RN RN cm10 Wilfredo Mirza Sonceria sj2
--- NOTE | 2024-07-20 14:15 | EDPHYS ---
Physician Documentation [facility] Name: Moira Alvares Age: 89 yrs Sex: Female : 1935 Arrival Date: 07/20/2024 Time: 10:56 Bed 8 Private MD: ED Physician Benny Jacobs HPI: 07/20 14:18 This 89 yrs old Female presents to ER via Wheelchair with complaints of General rt Weakness, HISTORY OF HEART PROBLEMS. 14:18 Patient presents to the ED with an acute episode of weakness starting just prior to rt arrival when she was in the kitchen cooking. States that she was sweaty at that time but denies any dizziness, chest pain. Denies other acute complaints at this time, symptoms are moderate in severity, no other aggravating or alleviating factors.. Historical: - Allergies: 11:15 Demerol; cm10 11:15 PENICILLINS; cm10 - PMHx: 11:15 a-fib (hysterectomy); Hypercholesterolemia; Hypertensive disorder; cm10 - PSHx: 11:15 hysterectomy; cm10 - Immunization history:: Adult Immunizations up to date. - Infectious Disease History:: Denies. - Social history:: Smoking status: Patient denies any tobacco usage or history of. - Family history:: not pertinent. ROS: 14:18 Constitutional: Negative for fever, chills, and weight loss, Cardiovascular: Negative rt for chest pain, palpitations, and edema, Respiratory: Negative for shortness of breath, cough, wheezing, and pleuritic chest pain, Abdomen/GI: Negative for abdominal pain, nausea, vomiting, diarrhea, and constipation, MS/Extremity: Negative for injury and deformity, Skin: Negative for injury, rash, and discoloration, Exam: 14:18 Constitutional: This is a well developed, well nourished patient who is awake, alert, rt and in no acute distress. Head/Face: Normocephalic, atraumatic. Chest/axilla: Normal chest wall appearance and motion. Nontender with no deformity. No lesions are appreciated. Cardiovascular: Regular rate and rhythm with a normal S1 and S2. No gallops, murmurs, or rubs. Normal PMI, no JVD. No pulse deficits. Respiratory: Lungs have equal breath sounds bilaterally, clear to auscultation and percussion. No rales, rhonchi or wheezes noted. No increased work of breathing, no retractions or nasal flaring. Abdomen/GI: Soft, non-tender, with normal bowel sounds. No distension or tympany. No guarding or rebound. No evidence of tenderness throughout. Skin: Warm, dry with normal turgor. Normal color with no rashes, no lesions, and no evidence of cellulitis. MS/ Extremity: Pulses equal, no cyanosis. Neurovascular intact. Full, normal range of motion. Neuro: Awake and alert, GCS 15, oriented to person, place, time, and situation. Cranial nerves II-XII grossly intact. Motor strength 5/5 in all extremities. Sensory grossly intact. Cerebellar exam normal. Normal gait. 14:18 ECG was reviewed by the Attending Physician. Vital Signs: 11:13 BP 133 / 73; Pulse 50; Resp 15; Temp 97.6(O); Pulse Ox 99% on R/A; Weight 49.44 kg; cm10 Height 4 ft. 10 in. ; Pain 0/10; 14:00 BP 143 / 70; Pulse 53; Resp 16; Pulse Ox 97% on R/A; db 11:13 Body Mass Index 22.78 (49.44 kg, 147.32 cm) cm10 11:13 Pain Scale: Adult cm10 MDM: 11:20 Medical Screening Exam initiated rt 14:18 Differential Diagnosis Vasovagal event, dysrhythmia, ACS, anemia. Data reviewed: vital rt signs, nurses notes. Consideration of Admission/Observation Escalation of care including admission/observation considered. Symptoms resolved, patient desirous of discharge, no indications for admission at this time, stable for outpatient care, return precautions discussed.. I considered the following discharge prescriptions or medication management in the emergency department Medications were administered in the Emergency Department. See MAR. Independent interpretation of the following test(s) in the Emergency Department X-Ray: My interpretation is No infiltrate seen on my interpretation of x-ray images. Test considered but Not performed: CT: No loss of consciousness, head trauma, CT scan of the head is not indicated. Care significantly affected by the following chronic conditions: Hypertension. Counseling: I had a detailed discussion with the patient and/or guardian regarding the historical points, exam findings, and any diagnostic results supporting the discharge/admit diagnosis, lab results, radiology results, the need for outpatient follow up, to return to the emergency department if symptoms worsen or persist or if there are any questions or concerns that arise at home. Response to treatment: the patient's symptoms have resolved after treatment. 07/20 12:05 Order name: Basic Metabolic Panel EDMS 07/20 12:05 Order name: Liver (Hepatic) Function EDMS 07/20 12:05 Order name: Troponin High Sensitivity EDMS 07/20 12:05 Order name: CBC with Automated Diff EDMS 07/20 12:16 Order name: CBC with Automated Diff; Complete Time: 13:39 EDMS 07/20 13:10 Order name: Basic Metabolic Panel; Complete Time: 13:39 EDMS 07/20 13:10 Order name: Liver (Hepatic) Function; Complete Time: 13:39 EDMS 07/20 13:10 Order name: Troponin High Sensitivity; Complete Time: 13:39 EDMS 07/20 11:45 Order name: Chest Single View EDMS 07/20 12:46 Order name: RAD; Complete Time: 13:39 EDMS 07/20 11:21 Order name: EKG; Complete Time: 11:21 rt 07/20 11:21 Order name: Cardiac monitoring; Complete Time: 14:11 rt 07/20 11:21 Order name: EKG - Nurse/Tech; Complete Time: 13:23 rt 07/20 11:21 Order name: IV Saline Lock; Complete Time: 12:00 rt 07/20 11:21 Order name: Labs collected and sent; Complete Time: 12:00 rt 07/20 11:21 Order name: O2 Per Protocol; Complete Time: 14:11 rt 07/20 11:21 Order name: O2 Sat Monitoring; Complete Time: 14:11 rt EC:18 Rate is 51 beats/min. Rhythm is regular, Sinus bradycardia with No ectopy. Left axis rt deviation noted. DC interval is normal. QRS interval is normal. QT interval is normal. No Q waves. T waves are Normal. No ST changes noted. Interpreted by me. Administered Medications: 13:50 Drug: NS 0.9% IV 500 ml IV at 500 ml once; to be given as a bolus over 60 minutes db Route: IV; Rate: 500 ml; Site: right antecubital; 14:34 Follow up: Response: No adverse reaction; IV Status: Completed infusion; IV Intake: db 500ml Disposition Summary: 07/20/24 14:14 Discharge Ordered Notes: Location: Home rt Problem: new rt Symptoms: are resolved rt Condition: Stable rt Diagnosis - Syncope Near rt Followup: rt - With: Private Physician - When: 2 - 3 days - Reason: Discharge Instructions: - Discharge Summary Sheet rt - Near-Syncope rt Forms: - Medication Reconciliation Form rt - Antibiotic Education rt - Prescription Opioid Use rt - Patient Portal Instructions rt - Leadership Thank You Letter rt Signatures: Dispatcher [employer] Torrie Valle, RN RN db Benny Jacobs MD MD rt Danuta Orourke RN RN cm10 Corrections: (The following items were deleted from the chart) 13:49 11:21 Chest Single View+[email or web address] ordered. EDKS EDMS
--- NOTE | 2024-07-22 11:57 | EKG ---
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
[2024-07-23 01:24] VITALS: BP 143/70; TEMP 97.6; O2SAT 97
== END 2024-07-20 14:37 | disposition home or self-care (01) ==
LOC: ER 10:56
DX: R55 Syncope and collapse (principal); R53.1 Weakness; I10 Essential (primary) hypertension; I48.91 Unspecified atrial fibrillation; E78.00 Pure hypercholesterolemia, unspecified
CPT/HCPCS: 93005; 85025; 80048; 36415; 80076; 84484; 71045; 96360; 99284; J7040